=== PATIENT | male | born 1990 | race Two or more races ===

== ENCOUNTER 2018-03-16 06:27 | Emergency (ER) | payer OTHER ==
[~2018-03-16] VITALS: Ht 170.2 cm; Wt 69.4 kg
[2018-03-16 06:43] VITALS: BP 120/82
[2018-03-16] MEDS ORDERED: BACITRACIN TOP OINT 1 UD PKG TOP ONE (07:00)
[2018-03-16] MEDS ORDERED: TETANUS-DIPTH-ACEL PERTUSSIS 0.5ML SYRG IM ONE (07:30)
[2018-03-16] MEDS ORDERED: LIDOCAINE 1% (LOCAL ANESTH.) PF 5ml SDV ID ONE (07:30)
== END 2018-03-16 07:37 | disposition home or self-care (01) ==
LOC: ER 06:27
DX: S61.412A Laceration without foreign body of left hand, initial encounter (principal); W26.0XXA Contact with knife, initial encounter; Y93.89 Activity, other specified; Y99.8 Other external cause status; Y92.89 Other specified places as the place of occurrence of the external cause
CPT/HCPCS: 12001; 90471; 90715

== ENCOUNTER 2018-04-18 19:29 | Emergency (ER) | payer OTHER ==
[~2018-04-18] VITALS: Ht 170.2 cm; Wt 70.3 kg
[2018-04-18] MEDS ORDERED: DEXAMETHASONE SOD PHOS 10MG/1ML VIAL INJ ONE (21:00)
[2018-04-18] MEDS ORDERED: MANNITOL 20% SOLN 100 gm/500ml 250 ML IV ONE ×2 (21:00→21:30)
[2018-04-18] MEDS ORDERED: DEXAMETHASONE SOD PHOS 10MG/1ML VIAL INJ IV ONE (21:00)
[2018-04-18] MEDS ORDERED: MANNITOL 20 % (20GM/100ML) 500 ML IV ONE (21:08)
[2018-04-18 21:28] LABS: Basophils # (auto) 0.1 uL; Basophils % (auto) 0.8 % (0.0-2.0); Eosinophils # (auto) 0.3 uL; Hematocrit 45.9 % (41.0-53.0); Hemoglobin 15.7 g/dL (13.5-17.5); Lymphocytes # (auto) 2.2 uL; Lymphocytes % (auto) 23.3 % (10.0-50.0); Mean Corpuscular Hemoglobin 31.6 pg (28.0-32.0); Mean Corpuscular Hgb Conc. 34.1 g/dL (32.0-36.0); Mean Corpuscular Volume 92.5 fL (80.0-100.0); Monocytes # (auto) 0.8 uL; Monocytes % (auto) 8.4 % (0.0-12.0); Neutrophils # (auto) 6.2 uL; Neutrophils % (auto) 64.5 % (37.0-80.0); Platelet Count (auto) 197 10^3/uL (140-450); Red Blood Cells 4.96 10^6/uL (4.5-5.90); Red Cell Distribution Width 12.6 % (11.8-14.3); White Blood Cell 9.7 10^3/uL (4.4-10.8)
[2018-04-18 21:40] LABS: Albumin 4.2 g/dL (3.4-5.0)
[2018-04-18 21:43] LABS: Bilirubin, Total 0.6 mg/dL (0.2-1.0); Total Protein 7.6 g/dL (6.4-8.2)
[2018-04-18 23:18] VITALS: BP 128/71
== END 2018-04-18 20:50 | disposition home or self-care (01) ==
LOC: ER 19:29
DX: I62.00 Nontraumatic subdural hemorrhage, unspecified (principal); Z86.73 Personal history of transient ischemic attack (TIA), and cerebral infarction without residual deficits
CPT/HCPCS: 36415; 70450; 80053; 85025; 94761; 96365; 96375; 99285; J1100

== ENCOUNTER 2018-09-12 17:24 | Emergency (ER) | payer OTHER ==
[~2018-09-12] VITALS: Ht 170.2 cm; Wt 68.0 kg
[2018-09-13 01:15] VITALS: BP 108/69
== END 2018-09-13 01:29 | disposition home or self-care (01) ==
LOC: ER 17:27
DX: R51 Headache (principal); Z86.73 Personal history of transient ischemic attack (TIA), and cerebral infarction without residual deficits
CPT/HCPCS: 70450

== ENCOUNTER 2019-07-07 11:48 | Emergency (ER) | payer OTHER ==
[~2019-07-07] VITALS: Ht 170.2 cm; Wt 68.0 kg
[2019-07-07] MEDS ORDERED: IBUPROFEN 800 MG TAB PO ONE (12:00)
[2019-07-07 13:40] VITALS: BP 111/69
[2019-07-07] MEDS ORDERED: cefTRIAXone SOD 1,000 MG VL IM ONE (14:00)
== END 2019-07-07 14:40 | disposition home or self-care (01) ==
LOC: ER 11:48
DX: J03.90 Acute tonsillitis, unspecified (principal); Z86.73 Personal history of transient ischemic attack (TIA), and cerebral infarction without residual deficits
CPT/HCPCS: 71046; 96372; 99283; J0696